=== PATIENT | female | born 1980 | race Caucasian/White ===

== ENCOUNTER 2021-11-02 12:40 | Emergency (ER) | payer OTHER ==
[~2021-11-02] VITALS: Ht 172 cm; Wt 75.7 kg
[~2021-11-02 12:40] MED LIST: CALC-250 PO; CALC625T66 PO; DULO30CA PO; FLC1T PO; METH2.5T PO; METH5TAB41 PO; NAPR-684 PO; NAPR250T PO; NF-ESOM40C PO; OXYC-309 PO; RABE20TA PO; TRAZ-144 PO; VITA150T PO
[2021-11-02] MEDS ORDERED: ADAL40PE (12:55)
[2021-11-02] MEDS ORDERED: FLUT16SP22 (12:55)
[2021-11-02] MEDS ORDERED: HYDR200T78 (12:55)
[2021-11-02] MEDS ORDERED: CETI10TA17 (12:55)
[2021-11-02] MEDS ORDERED: PANT40TA52 (12:55)
[2021-11-02] MEDS ORDERED: ERGO1250 (12:55)
[2021-11-02] MEDS ORDERED: NS IV 1000 ML 1,000 ML IV SCH (13:00)
[2021-11-02] MEDS ORDERED: fentaNYL INJ 100 MCG/2 ML AMP IVP ONE (13:00)
--- NOTE | 2021-11-02 13:12 | ED Abdominal Pain ---
General Chief Complaint: Abdominal/GI Problems Stated Complaint: ABD PAIN / N/V Source of Information: Patient Exam Limitations: No Limitations History of Present Illness Date Seen by Provider: Nov 02, 2021 Time Seen by Provider: 12:35 Initial Comments Patient presents ER by private conveyance from [facility] with Katherine Scott where she was seen for 1 week of intractable nausea vomiting and increasing abdominal pain in the epigastric and right upper quadrant region. Her mother and sister both have had her gallbladder out. She has never had a history of a gallbladder work-up or pancreatitis. She is acutely tender to palpation there. Vitals were stable per Dr. Scott. She has a history of a , l aparoscopic tubal ligation and appendectomy. She has been constipated but did finally have a bowel movement yesterday which was small, hard and chelsea colored. Last oral intake was yesterday evening. She has not been taking her medications for rheumatoid arthritis which include Humira celecoxib and Plaquenil for the past 6 days. Allergies and Home Medications Allergies Coded Allergies: Egg Derived (Verified Allergy, Unknown, ANAPHYLAXIS, 11/02/21) Patient Home Medication List Home Medication List Reviewed: Yes Adalimumab (Humira) 40 Mg/0.8 Ml Pen.ij.kit, (Reported) Entered as Reported by: GOGO TREJO on 11/02/211254 Last Action: New Order Cetirizine HCl (Cetirizine HCl) 10 Mg Tablet, (Reported) Entered as Reported by: GOGO TREJO on 11/02/211254 Last Action: New Order Duloxetine Hcl (Cymbalta) 30 Mg Capsule.dr, 60 MG PO DAILY, (Reported) Entered as Reported by: MARK HINOJOSA on 09/23/13 161 Ergocalciferol (Vitamin D2) (Vitamin D2) 1,250 Mcg Capsule, (Reported) Entered as Reported by: GOGO TREJO on 11/02/211254 Last Action: New Order Fluticasone Propionate (Fluticasone Propionate) 16 Gm [place].susp, (Reported) Entered as Reported by: GOGO TREJO on 11/02/211254 Last Action: New Order Hydroxychloroquine Sulfate (Plaquenil) 200 Mg Tablet, (Reported) Entered as Reported by: GOGO TREJO on 11/02/211254 Last Action: New Order Methotrexate Sodium (Methotrexate) 2.5 Mg Tablet, 10 MG PO EVENINGS, (Reported) Entered as Reported by: NASREEN JACKSON on 09/26/13 131 Methotrexate Sodium (Methotrexate) 2.5 Mg Tablet, 10 MG PO TUE MORNINGS, (Reported) Entered as Reported by: NASREEN JACKSON on 09/26/13 131 Pantoprazole Sodium (Pantoprazole Sodium) 40 Mg Tablet.dr (Reported) Entered as Reported by: GOGO TREJO on 11/02/21 125 Last Action: New Order Review of Systems Review of Systems Constitutional: No chills, No diaphoresis EENTM: No Blurred Vision, No Double Vision Respiratory: Denies Cough, Denies Orthopnea Cardiovascular: Denies Chest Pain, Denies Lightheadedness Gastrointestinal: See HPI, Abdominal Pain; Denies Constipated, Denies Diarrhea; Nausea, Poor Fluid Intake, Vomiting Genitourinary: Denies Burning, Denies Discharge Musculoskeletal: No back pain, No joint pain All Other Systems Reviewed Negative Unless Noted: Yes Past Cxbnpmu-Aredka-Xvlkjb Hx Patient Social History Tobacco Use?: No Substance use?: No Alcohol Use?: No Pt feels they are or have been: No Immunizations Up To Date Tetanus Booster (TDap): Less than 5yrs PED Vaccines UTD: Yes COVID19 Vaccine Blow Up Operator: Crude Area Past Medical History Surgery/Hospitalization HX: ARTHRITIS, GERD Reproductive Disorders: No [facility] History: Tubal Ligation Gastroesophageal Reflux, Ulcer Rheumatoid Arthritis Lupus Sleep Difficulties, Anxiety, Depression Adverse Reaction/Blood Tranf: No Family Medical History Family history: Cardiovascular disease 03 MOTHER ( with blood clot to heart at 59 years of age) Family history: Coronary thrombosis 03 MOTHER ( at 59) Family history: Diabetes mellitus 09 SISTER (hypoglycemic) Family history: Gastrointestinal disease 09 SISTER (blood clot to liver) Family history: Hypertension 03 FATHER Infertile 09 SISTER, Onset:30's - 40 Seizure disorder 09 BROTHER (20) Physical Exam Vital Signs Vital Signs - First Documented 11/02/21 12:55 Temp 36.0 Pulse 76 Resp 18 B/P (MAP) 131/92 (105) Pulse Ox 98 Capillary Refill : Height/Weight/BMI Height: 5'7.00" Weight: 146lbs. 3.2oz. 66.178344hi; BMI Method:Stated General Appearance: WD/WN, mild distress HEENT: PERRL/EOMI, pharynx normal Neck: full range of motion, supple, normal inspection Respiratory: lungs clear, normal breath sounds, no respiratory distress, no accessory muscle use Cardiovascular: normal peripheral pulses, regular rate, rhythm Peripheral Pulses: 2+ Radial Pulses (R), 2+ Radial Pulses (L) Gastrointestinal: normal bowel sounds (Quiescent), soft, no organomegaly (No mesenteric signs), tenderness (Exquisitely tender in the right upper quadrant and epigastric region with positive Alegria sign) Extremities: normal inspection, normal capillary refill Neurologic/Psychiatric: no motor/sensory deficits, alert, normal mood/affect, oriented x 3 Skin: normal color, warm/dry Progress/Results/Core Measures Results/Orders Lab Results Laboratory Tests Test 11/02/21 12:58 Range/Units White Blood Count 8.7 4.3-11.0 10^3/uL Red Blood Count 5.02 3.80-5.11 10^6/uL Hemoglobin 14.7 11.5-16.0 g/dL Hematocrit 44 35-52 % Mean Corpuscular Volume 87 80-99 fL Mean Corpuscular Hemoglobin 29 25-34 pg Mean Corpuscular Hemoglobin Concent 34 32-36 g/dL Red Cell Distribution Width 12.4 10.0-14.5 % Platelet Count 281 130-400 10^3/uL Mean Platelet Volume 10.6 9.0-12.2 fL Immature Granulocyte % (Auto) 0 % Neutrophils (%) (Auto) 57 42-75 % Lymphocytes (%) (Auto) 36 12-44 % Monocytes (%) (Auto) 6 0-12 % Eosinophils (%) (Auto) 1 0-10 % Basophils (%) (Auto) 1 0-10 % Neutrophils # (Auto) 4.9 1.8-7.8 10^3/uL Lymphocytes # (Auto) 3.1 1.0-4.0 10^3/uL Monocytes # (Auto) 0.5 0.0-1.0 10^3/uL Eosinophils # (Auto) 0.1 0.0-0.3 10^3/uL Basophils # (Auto) 0.1 0.0-0.1 10^3/uL Immature Granulocyte # (Auto) 0.0 0.0-0.1 10^3/uL My Orders Orders - EYAL CASAREZ Ed Iv/Invasive Line Start (11/02/21 12:58) Ns Iv 1000 Ml (Sodium Chloride 0.9%) (11/02/21 13:00) Fentanyl Inj (Sublimaze Injection) (11/02/21 13:00) Cbc With Automated Diff (11/02/21 13:04) Comprehensive Metabolic Panel (11/02/21 13:04) Hs C Reactive Protein (11/02/21 13:04) Lipase (11/02/21 13:04) Ed Iv/Invasive Line Start (11/02/21 13:04) Ed Iv/Invasive Line Start (11/02/21 13:05) Us Gallbladder [id number] (11/02/21 13:05) Pantoprazole Injection (Protonix Injecti (11/02/21 13:45) Lidocaine 2% Viscous 15 Ml (Xylocaine Vi (11/02/21 14:45) Famotidine Tablet (Pepcid Tablet) (11/02/21 14:37) Antacid Suspension (Mylanta Suspension (11/02/21 14:45) Medications Given in ED Current Medications Medications Dose Ordered Sig/Sharyn Route Start Time Stop Time Status Last Admin Dose Admin Al Hydrox/Mg Hydrox/Simethicone 30 ml ONCE ONCE PO 11/02/21 14:45 11/02/21 14:46 DC 11/02/21 14:53 30 ML Fentanyl Citrate 50 mcg ONCE ONCE IVP 11/02/21 13:00 11/02/21 13:04 DC 11/02/21 13:14 50 MCG Lidocaine HCl 15 ml ONCE ONCE PO 11/02/21 14:45 11/02/21 14:46 DC 11/02/21 14:53 15 ML Pantoprazole 40 mg ONCE ONCE IV 11/02/21 13:45 11/02/21 13:46 DC 11/02/21 14:15 40 MG Vital Signs/I&O 11/02/21 12:55 Temp 36.0 Pulse 76 Resp 18 B/P (MAP) 131/92 (105) Pulse Ox 98 Progress Progress Note #1: Time: 13:11 Progress Note 50 mcg of fentanyl, a liter of fluids, labs and an ultrasound of her right upper quadrant. Progress Note #2: Time: 14:38 Progress Note Patient's markers of inflammation are negative and there is no elevation in lipase or evidence of obstruction on ultrasound or labs. We discussed these findings with her and suspect that perhaps she could have a functional gallbladder issue or gastric lining issue. She says her pain is down to a 1 or 2 out of 10 after the fentanyl so we will trial some GI cocktail and Pepcid and see how that helps. Based on that we will suggest she follow-up with Dr. Fernandez, general surgery to consider appropriate outpatient work-up. We will make sure she has nausea medicine and pain medicine as necessary. Progress Note #3: Time: 15:08 Progress Note After taking the GI cocktail the patient became nauseated. We will give her 8 of Zofran. Will make sure she has some Zofran Carafate and split her pantoprazole up to 20 twice a day and have her follow-up later in the week with Dr. Fernandez, general surgery to further work-up her symptoms. Patient is okay with this plan. Diagnostic Imaging Diagonstic Imaging: Ultrasound Plain Films/CT/US/NM/MRI: abdomen (Right upper quadrant) Comments [facility], [place] NAME: [facility] REC#: [id number] PT STATUS: REG ER : 1980 PHYSICIAN: EYAL CASAREZ MD ADMIT DATE: 11/02/21/ER Draft Date of Exam:11/02/21 US GALLBLADDER [id number] PROCEDURE: US Gallbladder. TECHNIQUE: Multiple Real-time grayscale images were obtained over the right upper quadrant in various projections. INDICATION: Right upper quadrant pain with nausea and vomiting. FINDINGS: The liver is normal in size at 15.4 cm. The portal vein is patent and shows normal direction of flow. No discrete liver mass is identified. The gallbladder is without stones or sludge. No wall thickening or biliary ductal dilatation is seen. The pancreas is unremarkable. The aorta is nonaneurysmal. The IVC is patent. The right kidney is without calculus or hydronephrosis. There is no ascites. IMPRESSION: Unremarkable gallbladder ultrasound. Dictated on workstation # [id number] Dict: 11/02/21 1345 Trans: 11/02/21 1347 [id number] Interpreted by: RAMYA CARTER MD Electronically signed by: Reviewed: Reviewed by Me Departure Impression Primary Impression: Gastritis Qualified Codes: K29.00 - Acute gastritis without bleeding Additional Impression: Nausea and vomiting Qualified Codes: R11.2 - Nausea with vomiting, unspecified Disposition: HOME, SELF-CARE Condition: Stable Departure-Patient Inst. Decision time for Depature: 15:11 Referrals: JANAK FERNANDEZ JULIE A MD (PCP/Family) Primary Care Physician Patient Instructions: Nausea and Vomiting, Adult (DC), Gastritis Add. Discharge Instructions: While I cannot find any evidence of dangerous obstruction or anything requiring surgery today your story makes me suspect there may be irritation either to the lining of your stomach and esophagus or dysfunction of the gallbladder or other related ducts and valves. This can be further worked-up by Dr. Fernandez, general surgery. Call his office and request follow-up this week if possible. Start taking pantoprazole 20 mg twice a day. Carafate half an hour before meals and at bedtime for the next 2 weeks. Tums, Rolaids, Maalox, etc. as necessary for pain. Tylenol 1000 mg every 8 hours as necessary for pain. Zofran/ondansetron 1 tablet under the tongue every 6 hours as necessary for nausea or vomiting. Return to the ER for intractable symptoms or dehydration. Avoid particularly spicy, greasy meals. High-fiber would be recommended. All discharge instructions reviewed with patient and/or family. Voiced understanding. Scripts Ondansetron (Ondansetron Odt) 4 Mg Tab.rapdis 4 MG PO Q6H PRN for NAUSEA/VOMITING, #12 TAB 0 Refills Prov: EYAL CASAREZ 11/02/21 Sucralfate (Carafate) 1 Gm Tablet 1 GM PO QIDACHS for 14 Days, #56 TAB 0 Refills Prov: EYAL CASAREZ 11/02/21 Pantoprazole Sodium (Pantoprazole Sodium) 20 Mg Tablet.dr 20 MG PO BID for 30 Days, #60 TAB 0 Refills Prov: EYAL CASAREZ 11/02/21 Work/School Note: Work Release Form Date Seen in the Emergency Department: Nov 02, 2021 Return to Work: Nov 03, 2021 Restrictions: No Restrictions Copy Copies To 1: JANAK FERNANDEZ DO; THERESA THOMAS TITUS J Nov 02, 2021 13:11
[2021-11-02 13:26] LABS: BASOPHILS # (AUTO) 0.1 10^3/uL (0.0-0.1); BASOPHILS % (AUTO) 1 % (0-10); EOSINOPHILS # (AUTO) 0.1 10^3/uL (0.0-0.3); EOSINOPHILS % (AUTO) 1 % (0-10); HEMATOCRIT 44 % (35-52); HEMOGLOBIN 14.7 g/dL (11.5-16.0); LYMPHOCYTES # (AUTO) 3.1 10^3/uL (1.0-4.0); LYMPHOCYTES % (AUTO) 36 % (12-44); MEAN CORPUSCULAR HEMOGLOBIN 29 pg (25-34); MEAN CORPUSCULAR HGB CONC 34 g/dL (32-36); MEAN CORPUSCULAR VOLUME 87 fL (80-99); MEAN PLATELET VOLUME 10.6 fL (9.0-12.2); MONOCYTES # (AUTO) 0.5 10^3/uL (0.0-1.0); MONOCYTES % (AUTO) 6 % (0-12); NEUTROPHILS # (AUTO) 4.9 10^3/uL (1.8-7.8); NEUTROPHILS % (AUTO) 57 % (42-75); PLATELET COUNT 281 10^3/uL (130-400); WHITE BLOOD COUNT 8.7 10^3/uL (4.3-11.0)
[2021-11-02 13:39] LABS: ALBUMIN 4.5 GM/DL (3.2-4.5); POTASSIUM 3.5 MMOL/L (3.6-5.0)
[2021-11-02 13:41] LABS: CALCIUM 9.1 MG/DL (8.5-10.1)
[2021-11-02 13:42] LABS: TOTAL PROTEIN 7.4 GM/DL (6.4-8.2)
[2021-11-02 13:43] LABS: BILIRUBIN,TOTAL 0.4 MG/DL (0.1-1.0)
[2021-11-02 13:45] LABS: CREATININE SERUM 0.77 MG/DL (0.60-1.30)
[2021-11-02] MEDS ORDERED: PANTOPRAZOLE 40 MG (PROTONIX) VIAL IV ONE (13:45)
--- NOTE | 2021-11-02 13:48 | Diagnostic Imaging Report ---
PROCEDURE: US Gallbladder. TECHNIQUE: Multiple Real-time grayscale images were obtained over the right upper quadrant in various projections. INDICATION: Right upper quadrant pain with nausea and vomiting. FINDINGS: The liver is normal in size at 15.4 cm. The portal vein is patent and shows normal direction of flow. No discrete liver mass is identified. The gallbladder is without stones or sludge. No wall thickening or biliary ductal dilatation is seen. The pancreas is unremarkable. The aorta is nonaneurysmal. The IVC is patent. The right kidney is without calculus or hydronephrosis. There is no ascites. IMPRESSION: Unremarkable gallbladder ultrasound. Dictated by: Dictated on workstation # [id number]
[2021-11-02] MEDS ORDERED: FAMOTIDINE 20 MG (PEPCID) TABLET PO STA (14:37)
[2021-11-02] MEDS ORDERED: ANTACID SUSP 30 ML UDC (MYLANTA) PO ONE (14:45)
[2021-11-02] MEDS ORDERED: LIDOCAINE 2% VISCOUS 15 ML UDC PO ONE (14:45)
[2021-11-02] MEDS ORDERED: ONDANSETRON 4 MG/2 ML (SDV) Z0FRAN ONE (15:08)
[2021-11-02] MEDS ORDERED: SUCR1TAB36 PO (15:14)
[2021-11-02] MEDS ORDERED: PANT20TA18 PO (15:14)
[2021-11-02] MEDS ORDERED: ONDA4TAB11 PO (15:14)
[2021-11-02] MEDS ORDERED: ONDANSETRON 4 MG/2 ML (SDV) Z0FRAN IVP ONE (15:15)
[2021-11-02 15:23] VITALS: BP 117/85
== END 2021-11-02 15:22 | disposition home or self-care (01) ==
LOC: EDUNIT# 12:40 → ER 12:42
DX: K29.70 Gastritis, unspecified, without bleeding (principal)
CPT/HCPCS: 36415; 76705; 80053; 83690; 85025; 86141; 96361; 96374; 96375

== ENCOUNTER 2021-11-09 12:46 | Outpatient (CLI) | payer OTHER ==
[~2021-11-09] VITALS: Ht 172.7 cm; Wt 74.8 kg
[~2021-11-09 12:46] MED LIST changes: +ADAL40PE; +CETI10TA17; +ERGO1250; +FLUT16SP22; +HYDR200T78; +ONDA4TAB11 PO; +PANT20TA18 PO; +PANT40TA52; +SUCR1TAB36 PO
[2021-11-09] MEDS ORDERED: CELE-63 PO (13:55)
[2021-11-09] MEDS ORDERED: MULT-974 PO (13:55)
== END 2021-11-09 13:58 ==
LOC: PREOP 12:46
PROVIDERS: ATTEND Surgery
DX: Z01.818 Encounter for other preprocedural examination (principal)

== ENCOUNTER 2021-11-11 07:10 | Day surgery (SDC) | payer OTHER ==
[~2021-11-11] VITALS: Ht 172.7 cm; Wt 74.8 kg
[~2021-11-11 07:10] MED LIST changes: +CELE-63 PO; +MULT-974 PO
[2021-11-11] MEDS ORDERED: LACTATED RINGERS 1,000 ML IV STA (07:20)
[2021-11-11 07:29] VITALS: BP 109/80
[2021-11-11] MEDS ORDERED: LACTATED RINGERS 1,000 ML IV ONE (07:29)
[2021-11-11] MEDS ORDERED: HURRICAINE EXT TUBE (BENZOCAINE) XX PRN (07:30)
--- NOTE | 2021-11-11 07:33 | Progress Note-Pre Operative ---
Pre-Operative Progress Note H&P Reviewed The H&P was reviewed, patient examined and no changes noted. Date Seen by Provider: Nov 11, 2021 Time Seen by Provider: 07:26 Date H&P Reviewed: Nov 11, 2021 Time H&P Reviewed: 07:26 Pre-Operative Diagnosis: epigastric abd pain, gerd JANAK FERNANDEZ DO Nov 11, 2021 07:33
[2021-11-11] MEDS ORDERED: MIDAZOLAM 2 MG/2 ML (VERSED) VIAL ONE (07:34)
[2021-11-11] MEDS ORDERED: proPOfol 200 MG/20 ML (DIPRIVAN) VIAL IV ONE (07:35)
[2021-11-11 07:55] VITALS: BP 116/78
[2021-11-11 08:00] VITALS: BP 113/73
[2021-11-11 08:04] VITALS: BP 113/73
--- NOTE | 2021-11-11 08:28 | Discharge Inst-Simple/Standard ---
Discharge Inst-Standard Patient Instructions/Follow Up Plan of Care/Instructions/FU: Steve Tuesday Activity as Tolerated: Yes Discharge Diet: Regular Diet JANAK FERNANDEZ DO Nov 11, 2021 08:28
--- NOTE | 2021-11-11 08:30 | Progress Note-Post Operative ---
Post-Operative Progess Note Surgeon (s)/Dovetailer (s) Surgeon JANAK FERNANDEZ DO Dovetailer: na Pre-Operative Diagnosis epigastric abd pain, gerd Post-Operative Diagnosis small hiatal hernia Procedure & Operative Findings Date of Procedure 11/11/21 Procedure Performed/Findings egd c biopsies Anesthesia Type per [facility] Estimated Blood Loss Estimated blood loss (mL): none Specimens/Packing Specimens Removed antrum, ge JANAK FERNANDEZ DO Nov 11, 2021 08:30
--- NOTE | 2021-11-11 08:41 | Anesthesia-General Post-Op ---
MAC Patient Condition Nausea/Vomiting: Present (Persistent nausea, will give Zofran 4 mg IV) Post Op Complications Complications None Follow Up Care/Instructions Patient Instructions None needed. Anesthesiology Discharge Order Discharge Order Patient is doing well, C/O nausea, stable vital signs, no apparent adverse anesthesia problems. IAN LAYTON DO Nov 11, 2021 08:41
[2021-11-11 08:45] VITALS: BP 107/80
[2021-11-11] MEDS ORDERED: ONDANSETRON 4 MG/2 ML (SDV) Z0FRAN IVP PRN (08:45)
[2021-11-11] MEDS ORDERED: ONDANSETRON 4 MG/2 ML (SDV) Z0FRAN IVP ONE (08:45)
--- NOTE | 2021-11-11 13:23 | OPERATIVE REPORT ---
DATE OF SERVICE: 11/11/2021 PREOPERATIVE DIAGNOSES: Epigastric abdominal pain and gastroesophageal reflux disease. POSTOPERATIVE DIAGNOSIS: Small hiatal hernia. PROCEDURES PERFORMED: EGD with biopsies. SURGEON: Janak Wilson DO. ANESTHESIA: Per MDA. ESTIMATED BLOOD LOSS: None. COMPLICATIONS: None. INDICATIONS FOR PROCEDURE: The patient is a 41-year-old female with epigastric abdominal pain and some GERD symptoms. She understands the risks and benefits of procedure. She had a gallbladder workup with borderline findings. We discussed doing an EGD for further evaluation. She understands the risks and benefits and wishes to proceed. Consent was signed in the chart. DESCRIPTION OF PROCEDURE: The patient was taken to the endoscopy suite and placed in a left lateral recumbent position. Timeout was performed. Scope was inserted in the mouth, down the esophagus, stomach and into the duodenum without difficulty. No polyps, masses or ulcerations within the duodenum. Scope was slowly retracted back into the stomach, where it was further insufflated. No polyps, masses or ulcerations. Biopsy of the antrum was obtained. Scope was retroflexed noting a small hiatal hernia, no other pathology. Scope was returned to its normal position, slowly withdrawn to the distal esophagus. Biopsy of GE junction was obtained. No polyps, masses or ulcerations. Scope was slowly retracted back until completely remove noting no other pathology. RECOMMENDATIONS: The patient will follow up on Tuesday. I feel that her gallbladder is most likely source of her symptoms due to no gross pathology noted. We will discuss proceeding with cholecystectomy. Any issues before that be seen at that time. Job ID: [id number] DocumentID: [id number] Dictated Date: 11/11/2021 08:33:26 Radiologic Technician Date: 11/11/2021 13:22:20 Dictated By: JANAK WILSON DO
== END 2021-11-11 09:07 | disposition home or self-care (01) ==
LOC: ENDO 07:10
PROVIDERS: ATTEND Surgery
DX: K21.00 Gastro-esophageal reflux disease with esophagitis, without bleeding (principal); K44.9 Diaphragmatic hernia without obstruction or gangrene
CPT/HCPCS: 84703

== ENCOUNTER 2021-11-17 05:36 | Outpatient (CLI) | payer OTHER ==
[~2021-11-17] VITALS: Ht 170.2 cm; Wt 74.8 kg
[2021-11-19] MEDS ORDERED: DOCU-143 PO (12:58)
[2021-11-19] MEDS ORDERED: ACHD5005 PO (12:58)
== END 2021-11-17 11:53 ==
LOC: PREOP 05:36
PROVIDERS: ATTEND Surgery
DX: Z01.818 Encounter for other preprocedural examination (principal)

== ENCOUNTER 2021-11-19 10:22 | Day surgery (SDC) | payer OTHER ==
[2021-11-19] VITALS (10 sets, daily range): BP systolic 108–125; BP diastolic 69–87
[~2021-11-19] VITALS: Ht 170.2 cm; Wt 74.8 kg
[2021-11-19] MEDS: LACTATED RINGERS 1,000 ML IV PRN ×2 (10:40→12:33)
[2021-11-19] MEDS ORDERED: ceFAZolin 2 GM IV Premixed 50 ML IV ONE (10:45)
[2021-11-19] MEDS ORDERED: ONDANSETRON 4 MG/2 ML (SDV) Z0FRAN IV ONE (11:00)
[2021-11-19] MEDS ORDERED: SCOPOLAMINE 1.5 MG (TRANSDERM-SCOP) PATCH TOP ONE (11:00)
[2021-11-19] MEDS ORDERED: FAMOTIDINE 20MG/2ML IV (PEPCID) IV ONE (11:00)
--- NOTE | 2021-11-19 11:26 | Progress Note-Pre Operative ---
Pre-Operative Progress Note H&P Reviewed The H&P was reviewed, patient examined and no changes noted. Date Seen by Provider: Nov 19, 2021 Time Seen by Provider: : Date H&P Reviewed: Nov 19, 2021 Time H&P Reviewed: : Pre-Operative Diagnosis: ruq abd pain, biliary dyskinesia JANAK FERNANDEZ DO Nov 19, 2021 11:26
[2021-11-19] MEDS ORDERED: LIDOCAINE/EPI 2% 1:100,00 (XYLOCAINE) 20 ML VIAL ONE (11:38)
[2021-11-19] MEDS ORDERED: NEOSTIGMINE 3 MG/3 ML VIAL ONE (11:54)
[2021-11-19] MEDS ORDERED: proPOfol 200 MG/20 ML (DIPRIVAN) VIAL IV ONE (11:54)
[2021-11-19] MEDS ORDERED: LIDOCAINE PF 2% 5 ML (XYLOCAINE) VIAL ONE (11:54)
[2021-11-19] MEDS ORDERED: ROCURONIUM 10 MG/ML 5 ML SYRINGE IV ONE (11:54)
[2021-11-19] MEDS ORDERED: ONDANSETRON 4 MG/2 ML (SDV) Z0FRAN ONE (11:54)
[2021-11-19] MEDS ORDERED: GLYCOPYRROLATE 0.2 MG/ML (ROBINUL) 2 ML VIAL ONE (11:54)
[2021-11-19] MEDS ORDERED: fentaNYL INJ 100 MCG/2 ML AMP ONE (11:55)
[2021-11-19] MEDS ORDERED: MIDAZOLAM 2 MG/2 ML (VERSED) VIAL ONE (11:55)
[2021-11-19] MEDS ORDERED: HYDROmorphone 2 MG/ML VIAL (DILAUDID) ONE (12:47)
--- NOTE | 2021-11-19 12:57 | Progress Note-Post Operative ---
Post-Operative Progess Note Surgeon (s)/Medical Center Manager (s) Surgeon JANAK FERNANDEZ DO Medical Center Manager: Dr. Penaloza assisted with retraction dissection and closure. Pre-Operative Diagnosis ruq abd pain, biliary dyskinesia Post-Operative Diagnosis same Procedure & Operative Findings Date of Procedure 11/19/21 Procedure Performed/Findings PROCEDURE: Laparoscopic cholecystectomy with intraoperative cholangiogram. COMPLICATIONS: None. PROCEDURE: The patient was taken to the operating suite and was prepped and draped in sterile fashion. A surgical pause was performed. Just superior to the umbilicus, a 12 mm incision was made. Dissection was taken down to the fascia, which was then scored and grasped with a Richelle and the abdomen was then entered. A 0 Vicryl suture was placed in a [id number] fashion and a Melchor trocar was placed and secured. Pneumoperitoneum was achieved. A 5mm trochar place in the subxyphoid and 2 in the right upper quadrant. The gallbladder was then grasped and elevated. Adhesions to the gallbladder were taken down with cautery and blunt dissection. The cystic duct, and cystic artery were then dissected out. Clip was placed on the distal portion of the cystic duct which was then partially transected. An arrow catheter was inserted into the duct. The cholangiogram was then performed. No filing defects and contrast made its way into the duodenum. Catheter removed. Clips were placed on proximal portion of the cystic duct and then the duct was then transected. Clips were placed along the proximal and distal portion of the cystic artery which was then transected. Hook cautery was used to dissect the gallbladder from the gallbladder fossa achieving hemostasis. The gallbladder was placed in an Endobag and removed through the 12 mm trocar site. The abdomen was then reinspected. Copious amounts of irrigation were used to irrigate the abdomen and there were no signs of active bleeding. Hemostasis had been achieved. The 12 mm fascial defect was then closed with 0 Vicryl suture that had been placed in a [id number] fashion. The abdomen was then desufflated, the trocars were removed. The abdomen was then washed and dried. The skin was then closed using 4-0 Monocryl in a subcuticular fashion. The abdomen was washed and dried and Skin Affix was place over incisions. Patient tolerated the procedure well without any complications and was taken to the recovery room in stable condition. Anesthesia Type general Estimated Blood Loss Estimated blood loss (mL): minimal Specimens/Packing Specimens Removed gallbladder JANAK FERNANDEZ DO Nov 19, 2021 12:57
[2021-11-19] MEDS ORDERED: DOCU-143 PO (12:58)
[2021-11-19] MEDS ORDERED: ACHD5005 PO (12:58)
--- NOTE | 2021-11-19 12:58 | Diagnostic Imaging Report ---
INDICATION: Right upper quadrant pain, undergoing cholecystectomy. FINDINGS: Single spot film as well as a single cine intraoperative cholangiogram image is submitted. There is cannulation of the extra hepatic biliary tree. Images demonstrate contrast opacification of the biliary system. Biliary tree is not significantly dilated. There was no persistent filling defect to indicate a retained stone. Flow was present into the duodenum. There was some extravasation of contrast at the cystic duct. IMPRESSION: Negative laparoscopic cholangiogram. Fluoroscopy Time: 13 seconds Number of Images Acquired: Single spot, single cine loop Dictated by: Dictated on workstation # [id number]
--- NOTE | 2021-11-19 12:59 | Discharge Inst-Simple/Standard ---
Discharge Inst-Standard Discharge Medications New, Converted or Re-Newed RX: Transmitted to Pharmacy Patient Instructions/Follow Up Plan of Care/Instructions/FU: 2-3 weeks Steve Activity as Tolerated: No Discharge Diet: Regular Diet Other Inst to Patient Follow up Appt: Make appointment for 2-3 weeks. Instructions: No lifting greater than 10 pounds. No strenuous activity. May shower in 24 hours, no tub bath or soaking. Use incentive spirometer at home as directed. No Smoking Skin/Wound Care: You have special glue over incision, it will fall off on it's own. Symptoms to Report: Appetite Changes, Extremity Discoloration, Numbness/Tingling, Swelling Increased, Bleeding Excessive, Eyesight Changes, Pain Increased, Urine Color Change, Constipation(Persistent), Fever over 101 degree F, Pain/Pressure in chest, Urinating Difficulty, Cough Up/Vomit Blood, Heart Beat Irreg/Pounding, Pain/Pressure in jaw, Vaginal Bleeding Increase, Cramps in feet or legs, Lightheadedness, Pain/Pressure in shoulder, Diarrhea(Persistent), Memory Changes Suddenly, Questions/Concerns, Weight gain consecutive days, Dizziness/Fainting, Nausea/Vomiting, Shortness of Breath, Weight gain over 2 pounds. If eyes or skin turn yellow notify physician. If questions or concerns contact your physician Or seek help at emergency department. JANAK FERNANDEZ DO Nov 19, 2021 12:59
[2021-11-19] MEDS ORDERED: SEVOFLURANE (ULTANE) 15 ML INHAL SOLN ONE (13:22)
[2021-11-19] MEDS ORDERED: HYDROmorphone 2 MG/ML VIAL (DILAUDID) IV ONE (13:30)
[2021-11-19] MEDS ORDERED: morphine INJ 10 MG/ML 1ML (SYR OR VIAL) IVP ONE (13:30)
[2021-11-19] MEDS ORDERED: ONDANSETRON 4 MG/2 ML (SDV) Z0FRAN IVP PRN (13:30)
--- NOTE | 2021-11-19 14:03 | Anesthesia-General Post-Op ---
MAC Patient Condition Mental Status/LOC: Same as Preop Cardiovascular: Satisfactory Nausea/Vomiting: Absent Respiratory: Satisfactory Pain: Controlled Complications: Absent Post Op Complications Complications None Follow Up Care/Instructions Patient Instructions None needed. Anesthesiology Discharge Order Discharge Order Patient is doing well, C/O abdominal pain which is to be expected, stable vital signs, no apparent adverse anesthesia problems. IAN LAYTON DO Nov 19, 2021 14:03
[2021-11-19] MEDS ORDERED: HYDROcodone/APAP 5 MG/325 MG (LORTAB) TAB ONE (14:19)
[2021-11-19] MEDS ORDERED: HYDROcodone/APAP 5 MG/325 MG (LORTAB) TAB PO ONE (14:30)
== END 2021-11-19 15:17 | disposition home or self-care (01) ==
LOC: SDC 10:22
PROVIDERS: ATTEND Surgery
DX: K81.1 Chronic cholecystitis (principal); K82.8 Other specified diseases of gallbladder; K21.9 Gastro-esophageal reflux disease without esophagitis; Z79.899 Other long term (current) drug therapy
CPT/HCPCS: 76000; 84703; 87081